=== PATIENT | female | born 1950 | race Caucasian/White ===

== ENCOUNTER 2023-07-09 13:55 | Inpatient (IN) ==
--- NOTE | 2023-07-09 16:59 | XRay Report ---
XR chest 1V not portable HISTORY: 73 years-old Female Chest pain, nonspecific COMPARISON: 12/13/2022 TECHNIQUE: PA view chest FINDINGS: Cardiomediastinal and hilar silhouettes are within normal limits. Subcentimeter calcified granuloma o f the right upper lobe. Mild right hemidiaphragmatic elevation. No pneumothorax, pleural effusion, ai rspace consolidation or overt pulmonary edema. Bones appear grossly intact. Cholecystectomy. IMPRESSION: No acute process. ACT 112: Negative or not required by law. The above report was generated using voice recognition software. It may contain grammatical, syntax o r spelling errors. Electronically signed by: Willie Oneal M.D. 07/09/2023 4:57 PM
[2023-07-09 17:15] LABS: Basophils % (auto) 1.1 %; Eosinophils % (auto) 2.1 %; Hematocrit (blood only) 44.5 % (37.0-47.0); Hemoglobin 14.8 g/dl (12.0-16.0); Immature Granulocytes # (auto) 0.06 K/uL (0.01-0.20); Immature Granulocytes % (auto) 0.6 %; Lymphocytes # (auto) 1.86 K/uL (1.20-3.40); Lymphocytes % (auto) 19.6 %; Mean Corpuscular Hgb Conc 33.3 g/dL (32.0-36.0); Mean Corpuscular Volume 90.3 fL (80.0-100.0); Mean Platelet Volume 11.2 fL (9.4-12.4); Monocytes # (auto) 0.57 K/uL (0.11-0.59); Neutrophils # (auto) 6.72 K/uL (1.40-6.50); Neutrophils % (auto) 70.6 %; Platelet Count 310 K/uL (130-400); RDW Coefficient of Variation 13.7 % (11.5-14.5); RDW Standard Deviation 45.4 fL (36.4-46.3); Red Blood Count 4.93 M/uL (4.20-5.40); White Blood Count 9.51 K/ul (4.8-10.8)
[2023-07-09 17:28] LABS: Partial Thromboplastin Ratio 0.9; Partial Thromboplastin Time 25 Seconds (21-31); Prothrombin Time 10.6 Seconds (9.0-12.0)
[2023-07-09 17:56] LABS: Potassium 3.9 mmol/L (3.5-5.1)
[2023-07-09 17:57] LABS: Albumin Globulin Ratio 1.3 (0.9-2); Albumin Level 4.2 gm/dl (3.4-5.0); BUN Creatinine Ratio 21.6 (10-20); Bilirubin,Total 0.5 mg/dl (0.2-1.0); Calcium 9.7 mg/dl (8.6-10.3); Creatinine Clr Calc Pharmacy 43.7 ml/min; Est GFR (African American) 74.5 ml/min; Est GFR (Non-African American) 64.3 ml/min; Globulin 3.3 gm/dl (2.5-4.0); Magnesium 1.9 mg/dl (1.7-2.4); Total Protein 7.5 gm/dl (6.0-8.3)
--- NOTE | 2023-07-09 17:58 | Emergency Department Note ---
Impression & Plan Chest pain, Palpitations, Elevated troponin ED Provider Note NAME: EDY DANIEL AGE: 73 SEX: F : 1950 ARRIVES VIA: Walk-In INFORMANT: Patient ED PROVIDER(S): Scott Fields DO CHIEF COMPLAINT: Chest pain HPI: Patient is a 73-year-old female who presents to the ER for shortness of breath and chest pain. Symptoms have been going on for the past 2 months with shortness of breath getting worse with any exertion. Over the past 2 days she has been getting chest tightness/burning associated with arm pain and shortness of breath. Yesterday lasted for an hour and today it lasted for couple hours. It has resolved now. She noticed that her heart rate was up today when this occurred in the 120s. Denies any belly pain nausea vomiting or diarrhea. No dysuria urgency or frequency. No other exacerbating or remitting factors. ADDITIONAL HISTORY OBTAINED: Per HPI Chronic Medical/Social Conditions Affecting Care: Per HPI PAST MEDICAL HISTORY:See Below PAST SURGICAL HISTORY:See Below FAMILY HISTORY:See Below SOCIAL HISTORY:See Below HOME MEDICATIONS:See Below ALLERGIES:See Below VITALS:See Below PHYSICAL EXAMINATION: GENERAL: Sitting up in bed, alert, well appearing, well nourished, no distress, non-toxic EYE EXAM: normal conjunctiva. PERRL and EOM's grossly intact. OROPHARYNX: mucous membranes are moist NECK: supple, no nuchal rigidity, no adenopathy, non-tender LUNGS: Clear to auscultation. Normal chest wall mechanics HEART: no murmurs, S1 normal and S2 normal ABDOMEN: abdomen soft, non-tender, normo-active bowel sounds, no masses, no rebound or guarding. BACK: Back is symmetrical on inspection and there is no deformity, no midline tenderness, no CVA tenderness. SKIN: no rashes and no bruising UPPER EXTREMITIES: upper extremities are grossly normal. LOWER EXTREMITIES: No pitting edema. NEURO EXAM: Normal sensorium, cranial nerves II-XII grossly intact, normal speech, no gross weakness of arms, no gross weakness of legs. MEDICAL DECISION MAKING: Patient is a 73-year-old female who presents the ER for above-stated complaint. IV was established medicals obtained. Labs show no significant leukocytosis or anemia. INR unremarkable. Dimer mildly elevated but age-adjusted is negative. BMP with LFTs bilirubin was unremarkable. Initial troponin was negative and repeat trended up to 16 and was positive. Lipase was normal. TSH unremarkable. Chest x-ray was clean. Patient was updated bedside. She was given aspirin. Discussed case with hospitalist this morning patient be admitted for further workup. Patient is currently pain-free. Held on heparin. Consults/Care Managements Discussions: Per [facility] Triage Nursing notes reviewed. Limited review of prior medical records performed Vital Signs: reviewed and remarkable for HTN adn tachy Differential diagnosis: Cardiac ischemia, aortic dissection, pulmonary embolism, pneumothorax, pneumonia, pericarditis, myocarditis, esophageal rupture, GERD, cholecystitis, pancreatitis, musculoskeletal, as well as other pathologies. ER treatment provided: See below Diagnostics interpreted by me include EKG and cardiac monitoring as listed below: -Cardiac Monitoring: An order was placed for continuous cardiac monitoring. The monitor shows a rate of 95 with sinus rhythm. -ECG: Sinus rhythm rate 88 Normal axis No PVCs T wave inversions in septal leads QTc 430 -Laboratory studies:Interpreted by me as stated above in MDM and shown below. Imaging studies: Xrays: As interpreted by me: Portable upright 1 view of the chest shows no focal infiltrate CTs show: none Procedures:none Critical Care: None Past Med/Surg History Medical History Colon perforation in 2012 -- treated with colon resection History of COVID-19 May 11, 2021. 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 History of left heart catheterization 2017 History of pericarditis per patient "post covid" - followed with [facility] [place] [facility] Hx of basal cell carcinoma Immune hypersensitivity reaction hives ocas Papular urticaria PSVT (paroxysmal supraventricular tachycardia) hx and had ablation Rash and nonspecific skin eruption not sure of what but get ocas hives Surgical History H/O hernia repair incisional hernia repair SEPTEMBER 2015 AND incisional hernia dehiscence surgery in JANUARY 2016 History of cardiac radiofrequency ablation treated for PSVT History of cholecystectomy 2020 History of colon surgery 2012 History of colonoscopy History of colostomy History of colostomy reversal History of hip replacement right and left Family History Other No family history of adverse response to anesthesia Denies family history of Ovarian cancer Prostate cancer Diabetes Breast cancer Colorectal cancer Hypertension Social History Smoking Status: Never smoker Second Hand Exposure: No; Do You Dip or Chew Tobacco: No; Hx Alcohol Use: Yes Alcohol type: wine Alcohol Intake Frequency: Monthly or Less Hx Substance Use: No Preferred Language: Faroese Communication Ability: Effective Visual Impairment: Limited Hearing Ability: Normal Protector Plate Attacher Required: No Beliefs That Will Affect Care: None marital status: Current Living Situation: Alone current occupational status: retired How many Children do You have: 1 How many Children do You have Comment: 1 son. Feels Safe at Home: Yes Childhood Exposure to Second-Hand Smoke: No Diet: regular caffeine: No during the past year weight has: remained stable Dental Care, Regularly: Yes Physical Activity Frequency: 1-2 Times per Week Physical Activity Frequency Comment: walking Seatbelt Use: always Sunscreen Use: Yes Do you think of yourself as: straight/heterosexual Gender Identity: Female Assistive Devices: Glasses Allergies Allergies Allergy/AdvReac Type Severity Reaction Status Date / Time diltiazem Allergy Severe HIVES Verified 07/09/23 18:26 flecainide Allergy Severe facial Verified 07/09/23 18:26 swelling/lip & mouth swelling levofloxacin Allergy Severe SWELLING Verified 07/09/23 18:26 OF LIPS AND MOUTH azithromycin Allergy Intermediate GI bleed Verified 07/09/23 18:26 metoprolol Allergy Intermediate MUSCLE Verified 07/09/23 18:26 PAIN Penicillins Allergy Intermediate HIVES Verified 07/09/23 18:26 adhesive AdvReac Severe skin Verified 07/09/23 18:26 blisters nickel AdvReac Severe skin Verified 07/09/23 18:26 irritation, blisters Home Meds Home Medications Medication Instructions Recorded Confirmed aspirin 81 mg capsule 81 mg PO DAILY PRN when needed 10/16/21 07/09/23 coenzyme Q10 300 mg capsule 300 mg PO QAM 10/16/21 07/09/23 multivitamin 1 tab PO QAM 10/16/21 07/09/23 cholecalciferol (vitamin D3) 125 125 mcg PO QAM 10/07/22 07/09/23 mcg (5,000 unit) capsule kirby extract 120 mg capsule 120 mg PO DAILY 07/09/23 07/09/23 cyanocobalamin (vitamin B-12) 1,000 mcg PO DAILY 07/09/23 07/09/23 1,000 mcg tablet (Vitamin B-12) vitamin A-vitamin C-vit E-min 1 tab PO DAILY 07/09/23 07/09/23 tablet Results & Data (ED) Vital Signs Vital Signs - 24 hr 07/09/23 14:02 07/09/23 18:21 07/09/23 19:30 Temperature 37.0 C Temperature Source Temporal Artery Scan Pulse Rate 100 H 65 Pulse Rate [Apical] Pulse Rhythm Regular Pulse Strength Normal Respiratory Rate 18 Respiratory Effort / Characteristics Non-Labored Respiratory Depth Normal Respiratory Pattern Regular Blood Pressure 142/83 H Blood Pressure [Right Arm] Blood Pressure Mean 102 Blood Pressure Mean [Right Arm] Blood Pressure Position Sitting Pulse Oximetry 98 95 Oxygen Delivery Method Room Air Room Air Oxygen Flow Rate 0 Sepsis Recent Fever Within 48 Hours No Sepsis New/Unexplained Change in Mental Status No Sepsis Action Taken by Nursing No Action Required Oxygen Flow Rate - Titration 0 Pulse Oximetry Post Tiitration 95 07/09/23 19:34 07/09/23 19:35 07/09/23 21:00 Temperature Temperature Source Pulse Rate Pulse Rate [Apical] 63 68 Pulse Rhythm Pulse Strength Respiratory Rate 17 18 Respiratory Effort / Characteristics Non-Labored Respiratory Depth Normal Respiratory Pattern Regular Blood Pressure Blood Pressure [Right Arm] 134/83 158/86 H Blood Pressure Mean Blood Pressure Mean [Right Arm] 100 110 Blood Pressure Position Pulse Oximetry 96 95 98 Oxygen Delivery Method Room Air Room Air Room Air Oxygen Flow Rate Sepsis Recent Fever Within 48 Hours Sepsis New/Unexplained Change in Mental Status Sepsis Action Taken by Nursing Oxygen Flow Rate - Titration Pulse Oximetry Post Tiitration Laboratory Data 07/09/23 14:20 07/09/23 14:20 Lab Results 07/09/23 07/09/23 Range/Units 14:20 20:59 WBC 9.51 (4.8-10.8) K/ul RBC 4.93 (4.20-5.40) M/uL Hgb 14.8 (12.0-16.0) g/dl Hct 44.5 (37.0-47.0) % MCV 90.3 (80.0-100.0) fL MCH 30.0 (25.0-34.0) pg MCHC 33.3 (32.0-36.0) g/dL RDW Std Deviation 45.4 (36.4-46.3) fL RDW Coeff of [place] 13.7 (11.5-14.5) % Plt Count 310 (130-400) K/uL MPV 11.2 (9.4-12.4) fL Immature Gran % (Auto) 0.6 % Neut % (Auto) 70.6 % Lymph % (Auto) 19.6 % [place] % (Auto) 6.0 % Eos % (Auto) 2.1 % Baso % (Auto) 1.1 % Neut # (Auto) 6.72 H (1.40-6.50) K/uL Lymph # (Auto) 1.86 (1.20-3.40) K/uL [place] # (Auto) 0.57 (0.11-0.59) K/uL Eos # (Auto) 0.20 (0.00-0.50) K/uL Baso # (Auto) 0.10 (0.00-0.20) K/uL Immature Gran # (Auto) 0.06 (0.01-0.20) K/uL PT 10.6 (9.0-12.0) Seconds INR 1.0 (0.9-1.1) APTT 25 (21-31) Seconds PTT Ratio 0.9 D-Dimer 640 H* (0-500) ug/L FEU Sodium 141 (136-145) mmol/L Potassium 3.9 (3.5-5.1) mmol/L Chloride 107 (98-107) mmol/L Carbon Dioxide 26 (21-32) mmol/L Anion Gap 8 (3-11) BUN 19 (6-23) mg/dl Creatinine 0.88 (0.6-1.2) mg/dl Est Cr Clr Drug Dosing 43.7 ml/min Est GFR ( Amer) 74.5 ml/min Est GFR (Non-Af Amer) 64.3 ml/min BUN/Creatinine Ratio 21.6 H (10-20) Glucose 114 H (70-99(Fasting)) mg/dl Calcium 9.7 (8.6-10.3) mg/dl Magnesium 1.9 (1.7-2.4) mg/dl Total Bilirubin 0.5 (0.2-1.0) mg/dl AST 27 (13-39) U/L ALT 22 (7-52) U/L Alkaline Phosphatase 75 (34-104) U/L Troponin I High Sens 12.8 16.3 H (0-14) pg/ml Total Protein 7.5 (6.0-8.3) gm/dl Albumin 4.2 (3.4-5.0) gm/dl Globulin 3.3 (2.5-4.0) gm/dl Albumin/Globulin Ratio 1.3 (0.9-2) Lipase 22 (11-82) U/L TSH 1.566 (0.300-4.500) uIu/ml Administered Medications Discontinued Medications Aspirin (Aspirin Chew 324 Mg) 324 mg PO NOW STA Stop: 07/09/23 17:59 Last Admin: 07/09/23 18:24 Dose: 324 mg Documented By: DANNIELLE Sodium Chloride (Nss) 1,000 mls @ 999 mls/hr IV .Q1H1M ONE Stop: 07/09/23 18:58 Last Infusion: 07/09/23 21:44 Dose: Infused Documented By: SKChristoph Admin: 07/09/23 18:23 Dose: 999 mls/hr Documented By: DANNIELLE Imaging Data Radiologist's Impression: Chest X-Ray 07/09/23 16:31 XR chest 1V not portable HISTORY: 73 years-old Female Chest pain, nonspecific COMPARISON: 12/13/2022 TECHNIQUE: PA view chest FINDINGS: Cardiomediastinal and hilar silhouettes are within normal limits. Subcentimeter calcified granuloma of the right upper lobe. Mild right hemidiaphragmatic elevation. No pneumothorax, pleural effusion, airspace consolidation or overt pulmonary edema. Bones appear grossly intact. Cholecystectomy. IMPRESSION: No acute process. ACT 112: Negative or not required by law. The above report was generated using voice recognition software. It may contain grammatical, syntax or spelling errors. Electronically signed by: Willie Oneal M.D. 07/09/2023 4:57 PM Discharge Plan Visit Data Chief Complaint: Cardiac Assessment Stated Complaint: ?AFIB,DOC REF,129 HR,CHEST PAIN,CARDIAC HX ED Provider: Scott Fields Discharge Problem: Chest pain, Palpitations, Elevated troponin Forms Stand Alone Forms: My [facility] Prescriptions Prescriptions: No Action multivitamin Tablet 1 tab PO QAM coenzyme Q10 300 mg capsule 300 mg PO QAM aspirin 81 mg capsule 81 mg PO DAILY PRN (Reason: when needed) cholecalciferol (vitamin D3) 125 mcg (5,000 unit) capsule 125 mcg PO QAM cyanocobalamin (vitamin B-12) [Vitamin B-12] 1,000 mcg Tablet 1,000 mcg PO DAILY Ocuvite Tablet 1 tab PO DAILY ashwagandha extract 120 mg Capsule 120 mg PO DAILY Referrals Referrals: Barbara Valladares [Primary Care Provider] - Discharge Problem: Chest pain Qualifiers: Chest pain type: unspecified Qualified Code(s): R07.9 - Chest pain, unspecified
[2023-07-09 17:59] LABS: Troponin I High Sensitivity 12.8 pg/ml (0-14)
[2023-07-09 18:08] LABS: Thyroid Stimulating Hormone 1.566 uIu/ml (0.300-4.500)
[2023-07-09] MEDS: SODIUM CHLORIDE 0.9% 1,000 ML IV ONE (18:23)
[2023-07-09] MEDS: ASPIRIN CHEW 324 MG PO STA (18:24)
[2023-07-09 21:55] LABS: D Dimer 640 ug/L FEU (0-500)
--- NOTE | 2023-07-09 22:18 | History & Physical Report ---
Date of Service July 09, 2023 Assessment & Plan (1) Chest pain: Plan: 73-year-old female presenting with increased frequency of chest discomfort and palpitations. Patient reports her symptoms have been ongoing since she had bronchitis 2 weeks ago. She does have history of SVT status post ablation as well as remote history of pericarditis following a URI. Increasing troponin. Initial value 12.8 which increased to 16.3. EKG with no acute ischemic changes. Patient with no underlying history of CAD or known risk factors. Patient with mild elevation of D-dimer = 640. No prior VTE. No lower extremity swelling or pain. She does report that she was fairly immobile 2 weeks ago during her illness. Admit to medical telemetry, monitor for arrhythmia Check 2D echo, ?effusion/pericarditis - no clinical suggestion of such Trend troponin to peak Check CTA chest to rule out PE Continue aspirin 81 mg p.o. daily. Of note, patient has this ordered as needed. Will give daily for now Patient may benefit from outpatient cardiac monitoring for continued assessment for arrhythmia (2) Palpitations: Plan: As above. Patient with history of SVT status post ablation 5 years ago. She reports episodes of palpitations, elevated heart rate to 120. Upon review of telemetry in ER, patient in sinus rhythm with occasional PVCs. Electrolytes are within normal limits. Trending troponin as above Telemetry monitoring Electrolyte repletion as needed Patient may benefit from ongoing cardiac monitoring as an outpatient F/E/N -saline lock. Monitor electrolytes. Regular diet as tolerated ProphylaxisLovenox Codefull Dispositionadmit to medical telemetry (3) Elevated troponin: History of Present Illness Chief Complaint: Chest discomfort, palpitations Primary Care Provider: Barbara Barraganremberto Wiggins is a 73yo female with history of SVT s/p ablation in 2014 and prior pericarditis presenting with several weeks of progressive ARIZA as well as chest discomfort. Patient had bronchitis recently - she was treated with 7 days of Doxycycline as well as 5 days of steroids. She was NEGATIVE for Influenza/Covid and Strep at the time of her illness. She reports some improvement but still has dry cough and hoarseness. She has noted a significant decrease in her exercise tolerance over the last several weeks. She is typically very active - goes to Yoga and exercise class 3x weekly. She has had multiple episodes of dizziness, near syncope, sweating and cold sweats. She has also had several episodes of chest pressure and racing heart. This afternoon around 13:00 she developed an episode of chest pressure and racing heart. Symptoms lasted approximately 3 hours. She describes the chest pressure as anterior, nonradiating, nonpositional and nonpleuritic, states that it felt like "an internal burning sensation". She did feel short of breath during the episode. She checked her heart rate during this time it was elevated at 120. She states that her heart monitor did not overheard any irregular beats, rhythm. Her blood pressure was within normal range. She called her PCP and was instructed to come to the ER. Patient presently feels well. She does report several episodes of "heart pain" occurring while waiting in the ER although they have been short in duration and self-limiting. Otherwise, patient denies fever, chills, nausea, vomiting, abdominal pain. She denies leg pain or edema. No orthopnea. In the ER, patient afebrile, hemodynamically stable. No acute distress. personnel monitor reviewed. Patient has been in normal sinus rhythm with infrequent PVCs. No arrhythmia noted Allergies Allergy/AdvReac Type Severity Reaction Status Date / Time diltiazem Allergy Severe HIVES Verified 07/09/23 18:26 flecainide Allergy Severe facial Verified 07/09/23 18:26 swelling/lip & mouth swelling levofloxacin Allergy Severe SWELLING Verified 07/09/23 18:26 OF LIPS AND MOUTH azithromycin Allergy Intermediate GI bleed Verified 07/09/23 18:26 metoprolol Allergy Intermediate MUSCLE Verified 07/09/23 18:26 PAIN Penicillins Allergy Intermediate HIVES Verified 07/09/23 18:26 adhesive AdvReac Severe skin Verified 07/09/23 18:26 blisters nickel AdvReac Severe skin Verified 07/09/23 18:26 irritation, blisters Home Medications Medication Instructions Recorded Confirmed Type aspirin 81 mg capsule 81 mg PO DAILY PRN when needed 10/16/21 07/09/23 History coenzyme Q10 300 mg capsule 300 mg PO QAM 10/16/21 07/09/23 History multivitamin 1 tab PO QAM 10/16/21 07/09/23 History cholecalciferol (vitamin D3) 125 125 mcg PO QAM 10/07/22 07/09/23 History mcg (5,000 unit) capsule ashwagandha extract 120 mg capsule 120 mg PO DAILY 07/09/23 07/09/23 History cyanocobalamin (vitamin B-12) 1,000 mcg PO DAILY 07/09/23 07/09/23 History 1,000 mcg tablet (Vitamin B-12) vitamin A-vitamin C-vit E-min 1 tab PO DAILY 07/09/23 07/09/23 History tablet Past Med/Surg History Medical History 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 Hx of basal cell carcinoma History of left heart catheterization 2017 PSVT (paroxysmal supraventricular tachycardia) hx and had ablation Surgical History History of colonoscopy History of colostomy reversal History of colostomy History of cardiac radiofrequency ablation treated for PSVT History of cholecystectomy 2020 History of hip replacement right and left H/O hernia repair incisional hernia repair SEPTEMBER 2015 AND incisional hernia dehiscence surgery in JANUARY 2016 History of colon surgery 2012 Family History Other No family history of adverse response to anesthesia Denies family history of Ovarian cancer Prostate cancer Diabetes Breast cancer Colorectal cancer Hypertension Social History Smoking Status: Never smoker Second Hand Exposure: No; Do You Dip or Chew Tobacco: No; Hx Alcohol Use: Yes Alcohol type: wine Alcohol Intake Frequency: Monthly or Less Hx Substance Use: No Preferred Language: Setswana Communication Ability: Effective Visual Impairment: Limited Hearing Ability: Normal Cardroom Worker Required: No Beliefs That Will Affect Care: None marital status: Current Living Situation: Alone current occupational status: retired How many Children do You have: 1 How many Children do You have Comment: 1 son. Feels Safe at Home: Yes Childhood Exposure to Second-Hand Smoke: No Diet: regular caffeine: No during the past year weight has: remained stable Dental Care, Regularly: Yes Physical Activity Frequency: 1-2 Times per Week Physical Activity Frequency Comment: walking Seatbelt Use: always Sunscreen Use: Yes Do you think of yourself as: straight/heterosexual Gender Identity: Female Assistive Devices: Glasses Review of Systems Review of Systems: All systems reviewed & are unremarkable except as noted in HPI & below Physical Exam Physical Exam: General: patient resting comfortably, NAD, non-toxic in appearance, AA&O x 4 Skin: warm, dry, intact, no rashes or lesions HEENT: NC/AT, PERRL, EOMI, anicteric sclera, conjunctiva without injection, external ear normal to inspection and nontender, nares patent, moist mucus membranes, dentition intact, no oropharyngeal lesions, neck supple, trachea midline, no LAD, no thyromegaly, no JVD Heart: +S1/S2, regular, no m/r/g Lungs: equal air entry bilaterally, no rales/rhonchi/wheezes Abd: +BS, soft, NT/ND, no masses/organomegaly/ascites Ext: warm, 2+ pulses in UE/LE bilaterally, no clubbing/cyanosis or edema Neuro: nonfocal, patient AA&O x 4, speech intact, no facial droop, moving all extremities on command with equal strength 5/5 Results & Data Results & Data Vital Signs (Past 12 Hours) Vital Signs Temp Pulse Pulse Resp BP BP Pulse Ox 07/09/23 22:02 78 07/09/23 21:00 68 18 158/86 H 98 07/09/23 19:35 95 07/09/23 19:34 63 17 134/83 96 07/09/23 19:30 95 07/09/23 18:21 65 07/09/23 14:02 37.0 C 100 H 18 142/83 H 98 O2 Del Method O2 Flow Rate 07/09/23 22:02 07/09/23 21:00 Room Air 07/09/23 19:35 Room Air 07/09/23 19:34 Room Air 07/09/23 19:30 Room Air 0 07/09/23 18:21 07/09/23 14:02 Room Air Laboratory Results Laboratory Results WBC 9.51 K/ul (4.8-10.8) 07/09/23 14:20 RBC 4.93 M/uL (4.20-5.40) 07/09/23 14:20 Hgb 14.8 g/dl (12.0-16.0) 07/09/23 14:20 Hct 44.5 % (37.0-47.0) 07/09/23 14:20 MCV 90.3 fL (80.0-100.0) 07/09/23 14:20 MCH 30.0 pg (25.0-34.0) 07/09/23 14:20 MCHC 33.3 g/dL (32.0-36.0) 07/09/23 14:20 RDW Std Deviation 45.4 fL (36.4-46.3) 07/09/23 14:20 RDW Coeff of [place] 13.7 % (11.5-14.5) 07/09/23 14:20 Plt Count 310 K/uL (130-400) 07/09/23 14:20 MPV 11.2 fL (9.4-12.4) 07/09/23 14:20 Immature Gran % (Auto) 0.6 % 07/09/23 14:20 Neut % (Auto) 70.6 % 07/09/23 14:20 Lymph % (Auto) 19.6 % 07/09/23 14:20 [place] % (Auto) 6.0 % 07/09/23 14:20 Eos % (Auto) 2.1 % 07/09/23 14:20 Baso % (Auto) 1.1 % 07/09/23 14:20 Neut # (Auto) 6.72 K/uL (1.40-6.50) H 07/09/23 14:20 Lymph # (Auto) 1.86 K/uL (1.20-3.40) 07/09/23 14:20 [place] # (Auto) 0.57 K/uL (0.11-0.59) 07/09/23 14:20 Eos # (Auto) 0.20 K/uL (0.00-0.50) 07/09/23 14:20 Baso # (Auto) 0.10 K/uL (0.00-0.20) 07/09/23 14:20 Immature Gran # (Auto) 0.06 K/uL (0.01-0.20) 07/09/23 14:20 PT 10.6 Seconds (9.0-12.0) 07/09/23 14:20 INR 1.0 (0.9-1.1) 07/09/23 14:20 APTT 25 Seconds (21-31) 07/09/23 14:20 PTT Ratio 0.9 07/09/23 14:20 D-Dimer 640 ug/L FEU (0-500) H* 07/09/23 20:59 Sodium 141 mmol/L (136-145) 07/09/23 14:20 Potassium 3.9 mmol/L (3.5-5.1) 07/09/23 14:20 Chloride 107 mmol/L (98-107) 07/09/23 14:20 Carbon Dioxide 26 mmol/L (21-32) 07/09/23 14:20 Anion Gap 8 (3-11) 07/09/23 14:20 BUN 19 mg/dl (6-23) 07/09/23 14:20 Creatinine 0.88 mg/dl (0.6-1.2) 07/09/23 14:20 Est Cr Clr Drug Dosing 43.7 ml/min 07/09/23 14:20 Est GFR ( Amer) 74.5 ml/min 07/09/23 14:20 Est GFR (Non-Af Amer) 64.3 ml/min 07/09/23 14:20 BUN/Creatinine Ratio 21.6 (10-20) H 07/09/23 14:20 Glucose 114 mg/dl (70-99(Fasting)) H 07/09/23 14:20 Calcium 9.7 mg/dl (8.6-10.3) 07/09/23 14:20 Magnesium 1.9 mg/dl (1.7-2.4) 07/09/23 14:20 Total Bilirubin 0.5 mg/dl (0.2-1.0) 07/09/23 14:20 AST 27 U/L (13-39) 07/09/23 14:20 ALT 22 U/L (7-52) 07/09/23 14:20 Alkaline Phosphatase 75 U/L (34-104) 07/09/23 14:20 Troponin I High Sens 16.3 pg/ml (0-14) H 07/09/23 20:59 Total Protein 7.5 gm/dl (6.0-8.3) 07/09/23 14:20 Albumin 4.2 gm/dl (3.4-5.0) 07/09/23 14:20 Globulin 3.3 gm/dl (2.5-4.0) 07/09/23 14:20 Albumin/Globulin Ratio 1.3 (0.9-2) 07/09/23 14:20 Lipase 22 U/L (11-82) 07/09/23 14:20 TSH 1.566 uIu/ml (0.300-4.500) 07/09/23 14:20 Impressions Chest X-Ray 07/09/23 16:31 XR chest 1V not portable HISTORY: 73 years-old Female Chest pain, nonspecific COMPARISON: 12/13/2022 TECHNIQUE: PA view chest FINDINGS: Cardiomediastinal and hilar silhouettes are within normal limits. Subcentimeter calcified granuloma of the right upper lobe. Mild right hemidiaphragmatic elevation. No pneumothorax, pleural effusion, airspace consolidation or overt pulmonary edema. Bones appear grossly intact. Cholecystectomy. IMPRESSION: No acute process. ACT 112: Negative or not required by law. The above report was generated using voice recognition software. It may contain grammatical, syntax or spelling errors. Electronically signed by: Willie Oneal M.D. 07/09/2023 4:57 PM ECG Additional Comments: EKG per my interpretation reveals NSR at 88bpm, normal axis, AY=051, QRS=80, QTc =430, non acute ischemic changes PG Care Time/CCT Total # of Minutes Spent Total Time Spent with Patient: Total time spent is greater than 50% in coordination of care (as documented) at patient's floor/unit and/or counseling patient: Coding Level of Care Code 57293 INT INP/OBS CARE 2/55MIN Diagnoses Chest pain R07.9 Chest pain type: unspecified Palpitations R00.2 Elevated troponin R79.89 (1) Chest pain Chest pain type: unspecified Qualified Code(s): R07.9 - Chest pain, unspecified
[2023-07-10] MEDS ORDERED: ACETAMINOPHEN 325 MG TAB PO PRN (00:21)
[2023-07-10] MEDS ORDERED: NON-FORMULARY MEDICATION (Aspirin 81 mg capsule) PO PRN (00:21)
[2023-07-10] MEDS: OPTIRAY 320 125ml IV ONE (00:53)
--- NOTE | 2023-07-10 02:54 | CT Scan Report ---
Exam(s): CTA CHEST IV Amt: 116 cc opti 320 EXAM: CT Angiography Chest With Intravenous Contrast CLINICAL HISTORY: PE. TECHNIQUE: Axial computed tomographic angiography images of the chest with intravenous contrast. CTDI is 9.56 mGy and DLP is 306.47 mGy-cm. Automated exposure control was utilized for the study. A dose lowering technique was utilized adhering to the principles of ALARA. MIP reconstructed images were created and reviewed. COMPARISON: Chest radiograph 07/09/2023 FINDINGS: Pulmonary arteries: Unremarkable. No pulmonary embolus. Aorta: No acute findings. No thoracic aortic aneurysm. Lungs: Interseptal thickening is noted. No consolidation. No mass. Pleural space: Unremarkable. No significant effusion. No pneumothorax. Heart: Unremarkable. No cardiomegaly. No significant pericardial effusion. No evidence of RV dysfunction. Bones/joints: There are degenerative changes of the spine. No acute fracture. No dislocation. Soft tissues: Unremarkable. Lymph nodes: Unremarkable. No enlarged lymph nodes. IMPRESSION: 1. No pulmonary embolus. 2. Interseptal thickening is concerning for pulmonary edema. Electronically signed by: Fatrun De La Cruz MD 07/10/23 02:53 AM
[2023-07-10] MEDS ORDERED: ASPIRIN 81 MG ECTAB PO SCH (09:00)
[2023-07-10] MEDS ORDERED: ENOXAPARIN INJ 40 MG/0.4 ML SYR SQ SCH (09:00)
--- OUTSIDE RECORDS SUMMARY | 2023-07-10 13:56 | External Medical Summary | Summary of Care ---
Author Name Unknown Organization [facility] Address [address] [place] [address] Phone [phone] Care Team Providers Care Headline Writer Name Role Phone Barbara Valladares Primary Care Provider [phone] Reason for Visit * Reason Onset Date Comments Sore Throat Vomiting Sore Throat 06/20/2023 Encounter Details Date Type Department Care Team (Latest Contact Info) Description 06/20/2023 9:20 AM EST Convenient Care Visit [facility] [address] [place] [address] Shaneka Avila PA-C [address] [place] [address] Acute pharyngitis, unspecified etiology* Allergies Active Allergy Reactions Criticality Noted Date Comments Azithromycin Bleeding High 10/12/2021 Diltiazem Hives 10/12/2021 Flecainide High 05/24/2014 Other reaction(s): angioedema, facial swelling/lip & mouth swelling, Intolerance Affecting eyes Double vision visual disturbances Levofloxacin Hives 10/12/2021 Metoprolol High 05/24/2014 Other reaction(s): FATIGUE, muscle pain, MUSCLE PAIN , Myalgia Leg pain Leg soreness Morphine Hives Medium 05/24/2014 PT IS UNSURE IF MORPHINE WAS THE OFFICIAL CAUSE OR NOT Nickel High 10/25/2016 Other reaction(s): skin irritation, blisters, Unknown blisters Penicillin G Hives 10/12/2021 documented as of this encounter (statuses as of 06/20/2023) Medications Medication Sig Dispensed Refills Start Date End Date Status Aspirin 81 MG Oral Tablet Delayed Release 1 Tablet. 0 10/03/2021 Ac tive Multi-Vitamin Oral Tablet Take 1 Tablet by mouth in the morning. 0 Active Cholecalciferol 125 MCG (5000 UT) Oral Capsule DAILY 0 09/04/2021 Active Ciclopirox Olamine 0.77 % External Cream Start: 04/02/22 14:00:00 EST, 1 appl, topical, bid, Disp# 90 g, Refills: 2, apply to affected toenails, Pharmacy: [facility]/pharmacy #[id number] 0 04/02/2022 Active Coenzyme Q10 300 MG Oral Capsule 300 mg . 0 10/16/2021 Active Ashwagandha 500 MG Oral Capsule Take 1,000 mg by mouth . 0 Active Triamcinolone Acetonide 0.1 % External Cream (Aristocort)Indication s:Rash and nonspecific skin eruption Apply to rash twice daily as needed 45 g 1 11/21/2022 Active documented as of this encounter (statuses as of 06/20/2023) Active Problems No known active problems documented as of this encounter (statuses as of 06/20/2023) Immunizations Name Administration Dates Next Due TDAP (age 10 and older)(Boostrix) 10/12/2021 documented as of this encounter Social History Tobacco Use Types Packs/Day Years Used Date Smoking Tobacco: Never Smokeless Tobacco: Never Tobacco Cessation:Counseling Given: Not Answered Alcohol Use Standard Drinks/Week Comments Not Asked 0 (1 standard drink = 0.6 oz pur e alcohol) minimal Sex and Gender Information Value Date Recorded Sex Assigned at Not on file Gender Identity Not on file Sexual Orientation Not on file Job Start Date Occupation Industry Not on file Not on file Not on file documented as of this encounter Last Filed Vital Signs Vital Sign Reading Time Taken Comments Blood Pressure 100/70 06/20/2023 9:33 AM EST Pulse 90 06/20/2023 9:33 AM EST Temperature 37.6 C (99.7 F) 06/20/2023 9:33 AM ES T Respiratory Rate 16 06/20/2023 9:33 AM EST Oxygen Saturation 94% 06/20/2023 9:33 AM EST Inhaled Oxygen Concentration - - Weight 60.8 kg (134 lb) 06/20/2023 9:33 AM EST Height - - Body Mass Index 23.74 09/10/2022 2:33 PM EDT documented in this encounter Progress Notes * Shaneka Avila PA-C - 06/20/2023 9:36 AM EST Millicent Wiggins is a 73 year old female who presents with sore throat symptoms. Patient was accompanied by Self. Nursing Notes: Maci Angel LPN 06/20/23 0938 Signed 73 yo female presents with sore throat/emesis this am. No OTC HPI: Severity of Symptoms: Moderate Modifying Factors (what was done since onset of Symptoms): none Timing (How often does it occur): started last night, constant Quality (Feels Like): irritated, sore throat Other associated Signs and Symptoms: nausea with vomiting of breakfast food x 1, fatigue Sore throat started late last night. [place] like she might pass out. Made herself eggs this morning but could not keep it down. No more emesis since that episode. Had some water. States she has struggled with various symptoms she attributes to long COVID, including GI sx, rashes. Has seen GI specialist, marine animal trainer with extensive evaluation in the past several months. Pt concerned about strep infection. ROS: Constitutional symptoms: no fever, no weight loss, no weakness, and no recent illness Upper respiratory symptoms: - chest tightness, - cough , - facial or sinus pain, and - upper tooth pain Pulmonary ROS: No cough, sputum, or hemoptysis, No wheezing, No shortness of breath, and No recent change in breathing Cardiovascular ROS: No chest pain, No shortness of breath, No dyspnea on exertion, No orthopnea, No paroxysmal nocturnal dyspnea, No edema, No palpitations, and No syncope Gastrointestional ROS: No abdominal pain, No change in bowel habits, No significant heartburn, No significant change in appetite, No hematemesis, No blood in stools or black tarry stools, No abdominal bloating or early satiety, and No dysphagia Skin/Integumentary ROS: No edema, No rash, and No itching Symptom duration of 1 days. Recent illnesses in household: No HISTORY: Past Medical History: Diagnosis Date COVID-19 long hauler Primary generalized (osteo)arthritis Past Surgical History: Procedure Laterality Date EGD, W/ENDOSCOPIC US 04/16/2022 mild dilation in CBD measured 8mm due-post cholecystectomy, evid of cholecystectyomy, otherwise normal / no specimens collected / ESOPHAGOGASTRODUODENOSCOPY (EGD), FLEXIBLE, TRANSORAL, ENDOSCOPIC ULTRASOUND performed by Naldo Rose MD at ENDOSCOPY [facility] REMOVE CATARACT, INSERT LENS PROSTH Left 08/27/2022 Left EXTRACAPSULAR CATARACT REMOVAL WITH INTRAOCULAR LENS performed by Joshua Sandoval MD at OR [facility] REMOVE CATARACT, INSERT LENS PROSTH Right 09/10/2022 Right EXTRACAPSULAR CATARACT REMOVAL WITH INTRAOCULAR LENS performed by Joshua Sandoval MD at OR [facility] SHOULDER ARTHROSCOPY SURGERY Right TOTAL HIP REPLACEMENT & PROSTHESIS Bilateral Social History Tobacco Use Smoking status: Never Smokeless tobacco: Never Substance Use Topics Alcohol use: Not on file Comment: minimal Vaping/E-Cigarette Use Vaping/E-Cigarette Use Never User Vaping/E-Cigarette Substances Vaping/E-Cigarette Devices Current Outpatient Medications Medication Sig Dispense Refill Aspirin 81 MG Oral Tablet Delayed Release 1 Tablet. Multi-Vitamin Oral Tablet Take 1 Tablet by mouth in the morning. Cholecalciferol 125 MCG (5000 UT) Oral Capsule DAILY Ciclopirox Olamine 0.77 % External Cream Start: 04/02/22 14:00:00 EST, 1 appl, topical, bid, Disp# 90 g, Refills: 2, apply to affected toenails, Pharmacy: [facility]/pharmacy #[id number] Coenzyme Q10 300 MG Oral Capsule 300 mg . Ashwagandha 500 MG Oral Capsule Take 1,000 mg by mouth . Triamcinolone Acetonide 0.1 % External Cream (Aristocort) Apply to rash twice daily as needed 45 g 1 No current facility-administered medications for this visit. Review of patient's allergies indicates: Allergen Reactions Azithromycin Bleeding Flecainide Other reaction(s): angioedema, facial swelling/lip & mouth swelling, Intolerance Affecting eyes Double vision visual disturbances Metoprolol Other reaction(s): FATIGUE, muscle pain, MUSCLE PAIN , Myalgia Leg pain Leg soreness Nickel Other reaction(s): skin irritation, blisters, Unknown blisters Morphine Hives PT IS UNSURE IF MORPHINE WAS THE OFFICIAL CAUSE OR NOT Diltiazem Hives Levofloxacin Hives Penicillin G Hives No family history on file. OBJECTIVE: BP 100/70 | Pulse 90 | Temp 37.6 C (99.7 F) (Tympanic) | Resp 16 | Wt 60.8 kg (134 lb) | SpO2 94% | BMI 23.74 kg/m | BSA 1.64 m Wt Readings from Last 1 Encounters: 06/20/23 60.8 kg (134 lb) General appearance: awake, alert, no apparent distress HEENT: perrl and eomi tms - clear, normal light reflex, no erythema + red and irritated pharynx No sinus tenderness or facial pain to percussion No turbinate engorgement or discharge Neck: normal, supple, no adenopathy Respiratory: clear to auscultation, no rhonchi, no wheezes, and no crackles Heart: regular rate, regular rhythm, no murmurs , no rubs, and no gallops Skin: skin color, texture, turgor are normal, no rashes or significant lesions Abdomen: abdomen soft, non-tender, normal bowel sounds, and no masses or organomegaly There are no Patient Instructions on file for this visit. Assessment: Acute pharyngitis, unspecified etiology (Primary) - STREP A SCREEN, POINT OF CARE (ENTER/EDIT) - GROUP A STREP PCR; Future; Expected date: 06/20/2023 - GROUP A STREP PCR - INFLUENZA A/B RSV SARS-COV2,PCR; Future; Expected date: 06/20/2023 Pt advised for rest, hydration. Follow up if new/worsening sx. Follow Up: Return if symptoms worsen or fail to improve. Patient goals for plan of care were discussed Shaneka Avila PA-C [address] [address] documented in this encounter Nursing Notes * Maci Angel LPN - 06/20/2023 9:33 AM EST 73 yo female presents with sore throat/emesis this am. No OTC documented in this encounter Plan of Treatment Upcoming Encounters Date Type Department Care Team (Late st Contact Info) Description 07/04/2023 4:15 PM EST Imaging Radiology [facility] [facility] [address] [facility] [place] [address] 07/22/2023 3:00 PM EDT Office Visit Orthopaedics [facility] [address] [facility] [place] [address] Jorge Garcia, DO [address] [place] [address] Pending Results Name Type Priority Associated Diagnoses Date /Time GROUP A STREP PCR Lab Routine Acute pharyngitis, unspecified etiology 06/20/2023 9:56 AM EST Scheduled Orders Name Type Priority Associated Diagnoses Orde r Schedule STREP A SCREEN, POINT OF CARE (ENTER/EDIT) Point of Care Testing Routine Acute pharyngitis, unspecified etiology Ordered: 06/20/2023 GROUP A STREP PCR Lab Routine Acute pharyngitis, unspecified etiology Expected: 06/20/2023, Expires: 06/20/2024 INFLUENZA A/B RSV SARS-COV2,PCR Lab Routine Acute pharyngitis, unspecified etiology Expected: 06/20/2023, Expires: 06/20/2024 Health Maintenance Due Date Last Done Comments DXA Scan 1950 Depression Screening 1960 Hepatitis C Screening 01/12/1966 Pneumococcal Vaccine: 65+ Years (2 of 2 - PPSV23 or PCV20) 08/10/2016 08/11/2015 Zoster Vaccines (3 of 3) 08/02/2022 023, 05/29/2016 COVID-19 Vaccine (3 - 2022-2 4 season) 2022 08/13/2021, 01/20/2021 Influenza Vaccine (FLU shot) (#1) 2022 03/19/2016, 03/05/2016 DTaP,Tdap,and Td Vaccines (2 - Td or Tdap) 10/13/2031 10/12/2021 GARDASIL-HPV IMMUNIZATION SERIES Aged Out No longer eligible b ased on patient's age to complete this topic Hepatitis B Aged Out No longer eligi ble based on patient's age to complete this topic MENINGOCOCCAL (MENACTRA/MENVEO) Aged Out No longer eligible b ased on patient's age to complete this topic documented as of this encounter Medical Devices Implanted Type Area Supervisor Scrap Preparation Device Identifier Shelf Expiration Date Model / Serial / Lot Lens Intraoc 23.5 - [id number] - [id number] Implanted:Qty: 1 on 08/27/2022 by Joshua Sandoval MD at OR [facility] Left: Eye [employer] 02/25/2027 [id number] / [id number] / [id number] Lens Intraoc 22.5 - [id number] - [id number] Implanted:Qty: 1 on 09/10/2022 by Joshua Sandoval MD at OR [facility] Right: Eye [employer] 04/27/2027 [id number] / [id number] / [id number] documented as of this encounter Visit Diagnoses Diagnosis Acute pharyngitis, unspecified etiology- Primary documented in this encounter Advance Directives Latest Code Status on File Code Status Date Activated Date Inactivated Comments No Code 09/10/2022 2:16 PM 09/10/2022 8:37 PM This order reflects the patients wishes and were consensually agreed upon. Question Answer Comments Discussion of Advance Directives occurred with: Patient Does the patient have a Living Will? No Does the patient have Health Care Power of Offset Press Operator? No Care Teams Headline Writer Relationship Specialty Start Date End Date Barbara Valladares CRNP [address] [place] [address] PCP - General Nurse Practitioner 07/29/22 documented as of this encounter"
--- OUTSIDE RECORDS SUMMARY | 2023-07-10 13:56 | External Medical Summary | Summary of Care ---
Author Name Unknown Organization [facility] Address [address] [facility] [address] Phone [phone] Care Team Providers Care Facilities Flight Check Pilot Name Role Phone Barbara Valladares Primary Care Provider [phone] Encounter Details Date Type Department Care Team (Late st Contact Info) Description 06/24/2023 Telephone Orthopaedics [facility] [address] [facility] [place] [address] Tonny Larios, [address] [facility] [place] [address] Allergies Active Allergy Reactions Criticality Noted Date [...] as of this encounter (statuses as of 06/25/2023) Medications Medication Sig Dispensed Refills Start Date [...] Refills: 2, apply to affected toenails, Pharmacy: [facility]/pharmacy #[id number] 0 04/02/2022 Active Coenzyme Q10 300 MG Oral Capsule 300 mg . 0 10/16/2021 Active Ashwagandha 500 MG Oral Capsule Take 1,000 mg by mouth . 0 Active Triamcinolone Acetonide 0.1 % External Cream (Aristocort)Indication s:Rash and nonspecific skin eruption Apply to rash twice daily as needed 45 g 1 11/21/2022 Active documented as of this encounter (statuses as of 06/25/2023) Active Problems No known active problems documented as of this encounter (statuses as of 06/25/2023) Immunizations Name Administration Dates Next Due TDAP (age 10 and older)(Boostrix) 10/12/2021 documented as of this encounter Social History Tobacco Use Types Packs/Day Years Used Date Smoking Tobacco: Never Smokeless Tobacco: Never Alcohol Use Standard Drinks/Week Comments Not Asked 0 (1 standard drink = 0.6 oz pur e alcohol) minimal Sex and Gender Information Value Date Recorded Sex Assigned at Not on file Gender Identity Not on file Sexual Orientation Not on file Job Start Date Occupation Industry Not on file Not on file Not on file documented as of this encounter Miscellaneous Notes * Telephone Encounter - Li Martinez MED ASSIST - 06/25/2023 2:14 PM EST Called and spoke with patient, advised patient of the results of MRI and recommendations, she states at this point she will think about this and decide later due to other health issues at the presenttime. * Telephone Encounter - Tonny Larios DO - 06/24/2023 7:56 AM EST Please call patient with MRI test results that she requested. Again I was only asked to do PRP consultation. Based on my opinion and experience with PRP I am unsure of how successful it will be givenher amount of pathology with meniscus cartilage and arthritis. I would definitely estimate it at less than 50% success rate. If she wishes to try PRP please schedule. As this is the only treatment option that I have to offer her but again I do not think it is highly successful Given her pathology seen on MRI. My recommendation is a TKA consultation. I am unsure if she even needs to follow up with Dr. Garcia she may want to follow up with a total joint specialist given her concerns. She would mentioned in the past that her prior surgeon at [facility] [place] [facility] Joint Fluid: Small knee joint effusion. Bursa/Cysts: No bursitis. Small Michael's cyst. ACL: Intact PCL: Intact Medial and Posteromedial Stabilizers: Intact Lateral and Posterolateral Stabilizers: Intact Patellofemoral Stabilizers: Quadriceps and Patellar tendons are intact. Retinacula are intact. Patellofemoral Compartment: High-grade partial-thickness patellar and trochlear cartilage loss. Medial Compartment: Degenerative tearing in the medial meniscal body which appears diminutive and mildly extruded. Broad-based area of full-thickness cartilage loss in the central weight-bearing portion of the femoral condyle and tibial plateau. Lateral Compartment: Intermediate intrasubstance signal in the lateral meniscal body consistent with degenerative change. No surfacing tear. High-grade partial- thickness cartilage loss over the central weight-bearing portion of the femoral condyle and tibial plateau. Bone: No fracture or marrow replacing lesion. Neurovascular: Within normal limits. Other: Mild nonspecific edema in the proximal lateral gastrocnemius muscle. IMPRESSION IMPRESSION 1. Degenerative medial meniscal tear. 2. 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 documented in this encounter Plan of Treatment Upcoming Encounters Date Type Department Care Team (Late st Contact Info) Description 07/22/2023 3:00 PM EDT Office Visit Orthopaedics [facility] [address] [place] [address] Jorge Garcia DO [address] [place] [address] Health Maintenance Due Date Last Done Comments [...] this encounter Medical Devices Implanted Type Area Nursing Program Chair Device Identifier Shelf Expiration Date Model / Serial / Lot Lens Intraoc 23.5 - [id number] - [id number] Implanted:Qty: 1 on 08/27/2022 by Joshua Sandoval MD at OR [facility] Left: Eye [employer] 02/25/2027 [id number] / [id number] / [id number] Lens Intraoc 22.5 - [id number] - [id number] Implanted:Qty: 1 on 09/10/2022 by Joshua Sandoval MD at OR [facility] Right: Eye [employer] 04/27/2027 [id number] / [id number] / [id number] documented as of this encounter Advance Directives Latest Code Status on File Code Status Date Activated Date Inactivated Comments No Code 09/10/2022 2:16 PM 09/10/2022 8:37 PM This order reflects the patients wishes and were consensually agreed upon. Question Answer Comments Discussion of Advance Directives occurred with: Patient Does the patient have a Living Will? No Does the patient have Health Care Power of Paint Spraying Machine Operator Helper? No Care Teams Facilities Flight Check Pilot Relationship Specialty Start Date End Date Barbara Valladares CRNP [address] [place] [address] PCP - General Nurse Practitioner 07/29/22 documented as of this encounter
--- OUTSIDE RECORDS SUMMARY | 2023-07-10 13:56 | External Medical Summary | Summary of Care ---
Author Name Unknown Organization [facility] Address [address] [place] [address] Phone [phone] Care Team Providers Care Data Integrity Analyst Name Role Phone Barbara Valladares Primary Care Provider [phone] Reason for Visit * Reason Onset Date Comments Appointment 06/21/2023 MRI Encounter Details Date Type Department Care Team (Late st Contact Info) Description 06/21/2023 Telephone [address] [place] [address] Debbie Wilson, RT (R) Appointment (/MRI) Allergies Active Allergy Reactions Criticality Noted Date [...] as of this encounter (statuses as of 06/21/2023) Medications Medication Sig Dispensed Refills Start Date [...] Refills: 2, apply to affected toenails, Pharmacy: [facility]/pharmacy #[id number] 0 04/02/2022 Active Coenzyme Q10 300 MG Oral Capsule 300 mg . 0 10/16/2021 Active Ashwagandha 500 MG Oral Capsule Take 1,000 mg by mouth . 0 Active Triamcinolone Acetonide 0.1 % External Cream (Aristocort)Indication s:Rash and nonspecific skin eruption Apply to rash twice daily as needed 45 g 1 11/21/2022 Active documented as of this encounter (statuses as of 06/21/2023) Active Problems No known active problems documented as of this encounter (statuses as of 06/21/2023) Immunizations Name Administration Dates Next Due TDAP [...] encounter Miscellaneous Notes * Telephone Encounter - Debbie Wilson RT (R) - 06/21/2023 4:53 PM EST Name: Millicent Wiggins Do you have any of the following: Pacemaker, stents, heart valves, aneurysm clips? No Have you ever worked with metal or have you ever gotten metal in your eyes? No Have you had a colonoscopy in the last 30 days? No On dialysis? No Do you have any dermals or body piercing's? No Do you wear an insulin pump or diabetic monitor? No Knows check in at [address] (R) documented in this encounter Plan of Treatment Upcoming Encounters Date Type Department Care Team (Late st Contact Info) Description 06/23/2023 10:00 AM EST Imaging Radiology [address] [place] [address] 07/22/2023 3:00 PM EDT Office Visit Orthopaedics [facility] [address] [place] [address] Jorge Garcia, [address] [place] [address] Health Maintenance Due Date Last Done Comments [...] this encounter Medical Devices Implanted Type Area Court Of Appeals Judge Device Identifier Shelf Expiration Date Model / Serial / Lot Lens Intraoc 23.5 - [id number] - [id number] Implanted:Qty: 1 on 08/27/2022 by Joshua Sandoval MD at OR [facility] Left: Eye [employer]OM[employer] 02/25/2027 [id number] / [id number] / [id number] Lens Intraoc 22.5 - [id number] - [id number] Implanted:Qty: 1 on 09/10/2022 by Joshua Sandoval MD at OR [facility] Right: Eye [employer]OM[employer] 04/27/2027 [id number] / [id number] / [id number] documented as of this encounter Advance Directives [...] the patient have Health Care Power of Chest Painting And Sealing Supervisor? No Care Teams Data Integrity Analyst Relationship Specialty Start Date End Date Barbara Valladares CRNP [address] [place] [address] PCP - General Nurse Practitioner 07/29/22 documented as of this encounter
--- OUTSIDE RECORDS SUMMARY | 2023-07-10 13:56 | External Medical Summary | Summary of Care ---
Author Name Unknown Organization [facility] Address [address] [place] [address] Phone [phone] Care Team Providers Care Experimental Mechanic Electrical Name Role Phone Barbara Valladares Primary Care Provider [phone] Reason for Visit * Reason Onset Date Comments Sore Throat Vomiting Sore Throat 06/20/2023 Encounter Details Date Type Department Care Team (Latest Contact Info) Description 06/20/2023 9:20 AM EST Convenient Care Visit [facility] [address] [place] [address] Shaneka Avila PA-C [address] [place] [address] Acute pharyngitis, unspecified etiology* Allergies Active Allergy [...] Refills: 2, apply to affected toenails, Pharmacy: [facility]/pharmacy #[id number] 04/02/2022 Active Coenzyme Q10 300 [...] fatigue Sore throat started late last night. Clifford like she might pass out. Made herself eggs this morning but could not keep it down. No more emesis since that episode. Had some water. States she has struggled with various symptoms she attributes to long COVID, including GI sx, rashes. Has seen GI specialist, tongue lining stitcher with extensive evaluation in the past several [...] performed by Naldo Rose MD at ENDOSCOPY [facility] REMOVE CATARACT, INSERT LENS PROSTH Left 08/27/2022 Left EXTRACAPSULAR CATARACT REMOVAL WITH INTRAOCULAR LENS performed by Joshua Sandoval MD at OR [facility] REMOVE CATARACT, INSERT LENS PROSTH Right 09/10/2022 Right EXTRACAPSULAR CATARACT REMOVAL WITH INTRAOCULAR LENS performed by Joshua Sandoval MD at OR [facility] SHOULDER ARTHROSCOPY SURGERY Right TOTAL HIP REPLACEMENT [...] Refills: 2, apply to affected toenails, Pharmacy: [facility]/pharmacy #[id number] Coenzyme Q10 300 MG Oral Capsule 300 [...] of care were discussed Shaneka Avila PA-C [address] [address] documented in this encounter Nursing Notes * Maci Angel LPN - 06/20/2023 9:33 AM EST 73 yo female presents with sore throat/emesis this am. No OTC documented in this encounter Plan of Treatment Upcoming Encounters Date Type Department Care Team (Late st Contact Info) Description 07/04/2023 4:15 PM EST Imaging Radiology [facility] 1st [facility] [address] [facility] [place] [address] 07/22/2023 3:00 PM EDT Office Visit Orthopaedics [facility] [address] [facility] [place] [address] Jorge Garcia, DO [address] [place] [address] Pending Results Name Type Priority Associated Diagnoses Date /Time GROUP A STREP PCR Lab Routine Acute pharyngitis, unspecified etiology 06/20/2023 9:56 AM EST INFLUENZA A/B RSV SARS-COV2,PCR Lab Routine Acute pharyngitis, unspecified etiology 06/20/2023 10:34 AM EST Scheduled Orders Name Type Priority [...] this encounter Medical Devices Implanted Type Area Brick Molder Hand Device Identifier Shelf Expiration Date Model / Serial / Lot Lens Intraoc 23.5 - [id number] - [id number] Implanted:Qty: 1 on 08/27/2022 by Joshua Sandoval MD at OR [facility] Left: Eye [employer]OM[employer] 02/25/2027 [id number] / [id number] / [id number] Lens Intraoc 22.5 - [id number] - [id number] Implanted:Qty: 1 on 09/10/2022 by Joshua Sandoval MD at OR [facility] Right: Eye [employer]USCH [employer] LOMB 04/27/2027 [id number] / [id number] / [id number] documented as of this encounter Visit Diagnoses [...] the patient have Health Care Power of Port Crane Operator? No Care Teams Experimental Mechanic Electrical Relationship Specialty Start Date End Date Barbara Valladares CRNP [address] [place] [address] PCP - General Nurse Practitioner 07/29/22 documented as of this encounter"
--- OUTSIDE RECORDS SUMMARY | 2023-07-10 13:56 | External Medical Summary | Summary of Care ---
Author Name Unknown Organization [facility] Address [address] [place] [address] Phone [phone] Care Team Providers Care Television Analyzer Name Role Phone Barbara Valladares Primary Care Provider [phone] Reason for Visit * Reason Onset Date Comments Sore Throat Vomiting Sore Throat 06/20/2023 Encounter Details Date Type Department Care Team (Latest Contact Info) Description 06/20/2023 9:20 AM EST Convenient Care Visit [facility] [address] [place] [address] Shaneka Avila PA-C [address] [place] [address] Acute pharyngitis, unspecified etiology* Allergies Active Allergy [...] Refills: 2, apply to affected toenails, Pharmacy: [facility]/pharmacy #[id number] 04/02/2022 Active Coenzyme Q10 [...] fatigue Sore throat started late last night. [place] like she might pass out. Made herself eggs this morning but could not keep it down. No more emesis since that episode. Had some water. States she has struggled with various symptoms she attributes to long COVID, including GI sx, rashes. Has seen GI specialist, shell coremaker with extensive evaluation in the past several [...] performed by Naldo Rose MD at ENDOSCOPY [facility] REMOVE CATARACT, INSERT LENS PROSTH Left 08/27/2022 Left EXTRACAPSULAR CATARACT REMOVAL WITH INTRAOCULAR LENS performed by Joshua aSndoval MD at OR [facility] REMOVE CATARACT, INSERT LENS PROSTH Right 09/10/2022 Right EXTRACAPSULAR CATARACT REMOVAL WITH INTRAOCULAR LENS performed by Joshua Sandoval MD at OR [facility] SHOULDER ARTHROSCOPY SURGERY Right TOTAL HIP REPLACEMENT [...] Refills: 2, apply to affected toenails, Pharmacy: [facility]/pharmacy #[id number] Coenzyme Q10 300 MG Oral Capsule 300 [...] of care were discussed Shaneka Avila PA-C [address] [address] documented in this encounter Nursing Notes * Maci Angel LPN - 06/20/2023 9:33 AM EST 73 yo female presents with sore throat/emesis this am. No OTC documented in this encounter Plan of Treatment Upcoming Encounters Date Type Department Care Team (Late st Contact Info) Description 07/04/2023 4:15 PM EST Imaging Radiology [facility] 1st [facility] [address] [facility] [place] [address] 07/22/2023 3:00 PM EDT Office Visit Orthopaedics [facility] [address] [facility] [place] [address] Jorge Garcia, DO [address] [place] [address] Pending Results Name Type Priority Associated Diagnoses Date /Time GROUP A STREP PCR Lab Routine Acute pharyngitis, unspecified etiology 06/20/2023 9:56 AM EST INFLUENZA A/B RSV SARS-COV2,PCR Lab Routine Acute pharyngitis, unspecified etiology 06/20/2023 10:34 AM EST Scheduled Orders Name Type Priority Associated Diagnoses Orde r Schedule GROUP A STREP PCR Lab Routine Acute [...] this encounter Medical Devices Implanted Type Area Psychiatric Nurse Practitioner Device Identifier Shelf Expiration Date Model / Serial / Lot Lens Intraoc 23.5 - [id number] - [id number] Implanted:Qty: 1 on 08/27/2022 by Joshua Sandoval MD at OR [facility] Left: Eye [employer]USCH [employer] LOMB 02/25/2027 [id number] / [id number] / [id number] Lens Intraoc 22.5 - [id number] - [id number] Implanted:Qty: 1 on 09/10/2022 by Joshua Sandoval MD at OR [facility] Right: Eye [employer]USCH [employer] LOMB 04/27/2027 [id number] / [id number] / [id number] documented as of this encounter Procedures Procedure Name Priority Date/Time Associated Diagnosis Comments STREP A SCREEN, POINT OF CARE (ENTER/EDIT) Routine 06/20/2023 Acute pharyngitis, unspecified etiology documented in this encounter Results * STREP A SCREEN, POINT OF CARE (ENTER/EDIT) (06/20/2023) Strep A Result Negative Negative Procedural Control Valid? Yes Lot Number [id number] Expiration Date 41, Swab Throat swab / Unknown 06/20/2023 Shaneka Avila PA-C LAB POINT OF CARE TEST ENTER/EDIT ORDERABLES documented in this encounter Visit Diagnoses Diagnosis Acute pharyngitis, [...] the patient have Health Care Power of Rolling Machine Operator Automatic? No Care Teams Television Analyzer Relationship Specialty Start Date End Date Barbara Valladares CRNP [address] [facility] [place] [address] PCP - General Nurse Practitioner 07/29/22 documented as of this encounter"
--- OUTSIDE RECORDS SUMMARY | 2023-07-10 13:57 | External Medical Summary | Summary of Care ---
Author Name Unknown Organization [facility] Address [address] [facility] [address] Phone [phone] Care Team Providers Care Administration Assistant Name Role Phone Barbara Valladares Primary Care Provider [phone] Reason for Referral * Evaluate & Treat - Unlimited Visits (Within 30 days (routine)) - Pending Review Specialty Diagnoses / Procedures Referred By Tin de jesus Referred To Contact Sports Medicine / Orthopedics Diagnoses Primary osteoarthritis of one knee, right Georgia Avila PA-C [address] [place] [address] Tonny Larios DO [address] [place] [address] Referral ID Status Reason Start Date Expiration Date Visits Requested Visits Authorized [id number] Pending Review Specialty Services Required 3 [phone] Question Answer Referral Priority Within 30 days (routine) Where should this appointment be scheduled? [facility] What body part is the patient being seen for? Thigh/Knee What condition is the patient being seen for? Sprain/Strain/Tear/Other Comments To Dr. Larios for further discussion regarding PRP Reason for Visit * Reason Comments NEW PATIENT Right knee Encounter Details Date Type Department Care Team (Latest Contact Info) Description 04/08/2023 3:30 PM EST Office Visit Orthopaedics [facility] [address] [place] [address] Jorge Garcia DO [address] [place] [address] Chronic pain of right knee*; Primary osteoarthritis of one knee, right Allergies Active Allergy Reactions Criticality Noted Date [...] as of this encounter (statuses as of 04/09/2023) Medications Medication Sig Dispensed Refills Start Date [...] Refills: 2, apply to affected toenails, Pharmacy: [facility]/pharmacy #[id number] 04/02/2022 Active Coenzyme Q10 300 MG Oral Capsule 300 mg . 0 10/16/2021 Active Ashwagandha 500 MG Oral Capsule Take 1,000 mg by mouth . 0 Active Triamcinolone Acetonide 0.1 % External Cream (Aristocort)Indication s:Rash and nonspecific skin eruption Apply to rash twice daily as needed 45 g 1 11/21/2022 Active documented as of this encounter (statuses as of 04/09/2023) Active Problems No known active problems documented as of this encounter (statuses as of 04/09/2023) Immunizations Name Administration Dates Next Due TDAP [...] on file documented as of this encounter Progress Notes * Jorge Garcia DO - 04/09/2023 7:29 AM EST I have reviewed the advanced practitioner documentation and agree. I saw and evaluated the patient on date of service referenced in note and have performed the medically appropriate history and/or exam * Georgia Avila PA-C - 04/08/2023 4:31 PM EST Patient Name: Millicent Wiggins CHIEF COMPLAINT: Chief Complaint Patient presents with NEW PATIENT Right knee HISTORY OF PRESENT ILLNESS: This is a 73 year old female seen in clinic today for right knee pain x years. She locates the painto the medial aspect of her knee. Her pain is most notable during yoga and using the stairs. She reports she has utilized a knee brace in the past. She does not feel the pain is severe enough to use Tylenol/ibuprofen, Voltaren gel, ice or heat. She denies any catching or locking of her knee. Deniesany numbness/tingling of her right lower extremity. She has been told she had knee arthritis in thepast by Dr. Martinez at [facility], and was approved for GARCIA injections but has not began treatment. She does express she is not interested in pursuing a total joint replacement for her knee, but tierras report bilateral total hip replacements done at [facility] in 2017. She is an inquiring today about an MRI for her knee. Past Medical History: Diagnosis Date COVID-19 long hauler Primary generalized (osteo)arthritis Past Surgical History: Procedure Laterality Date EGD, W/ENDOSCOPIC US 04/16/2022 mild dilation in CBD measured 8mm due-post cholecystectomy, evid of cholecystectyomy, otherwise normal / no specimens collected / ESOPHAGOGASTRODUODENOSCOPY (EGD), FLEXIBLE, TRANSORAL, ENDOSCOPIC ULTRASOUND performed by Naldo Rose MD at ENDOSCOPY [facility] REMOVE CATARACT, INSERT LENS PROSTH Left 08/27/2022 Left EXTRACAPSULAR CATARACT REMOVAL WITH INTRAOCULAR LENS performed by Joshua Sandoval MD at OR [facility] REMOVE CATARACT, INSERT LENS PROSTH Right 09/10/2022 Right EXTRACAPSULAR CATARACT REMOVAL WITH INTRAOCULAR LENS performed by Joshua Sandoval MD at OR [facility] SHOULDER ARTHROSCOPY SURGERY Right TOTAL HIP REPLACEMENT & PROSTHESIS Bilateral No family history on file. Social History Social History Narrative Not on file ROS: Constitional: No change in weight, No weakness, No fatigue, and No fevers, sweats, or chills Skin: No edema, No rash, and No itching Psychiatric: No depression, No anxiety, and No psychosis PHYSICAL EXAM: There were no vitals taken for this visit. General: generally well-nourished and in no acute distress HEENT: normocephalic, atraumatic, EOMI, sclera anicteric. Psych: mood and affect normal , cooperative Card: Peripheral pulses: normal in affected extremity (s) Resp: equal chest rise, non-tachypneic, non-labored breathing Skin: no rash, normal Neuro: Coordination: normal The patient has a normal gait. The right knee is nontender over the medial and lateral joint line. Margot's test is negative. Apley grind test: negative There is no effusion. ROM is from 0 to 120 degrees. There is no tenderness over the patellar tendon. There is no patellar crepitus. There is no pain with provocative patellofemoral maneuvers. J sign: negative Anterior drawer negative Posterior drawer negative Varus stress: negative without pain Valgus stress: negative without pain There is 5/5 quad/hamstring Sensation: Intact L3-S1 Foot warm and well perfused Bilateral hips: No pain with log roll IMAGING: XRAYS: Right knee WB AP/lateral/[place] performed today demonstrate per my interpretationno acute fracture/dislocation. Joint space narrowing with osteophyte formation most prominent in the medial compartment. No joint effusion. No soft tissue abnormality. ASSESSMENT: Millicent is a 73 year old female with primary osteoarthritis of right knee. PLAN: Patient seen and examined in clinic today. I personally reviewed the patient's imaging studies withthe patient during today's visit. Various treatment options were discussed. Nonoperative treatment discussed in detail including anti- inflammatory medication, physical therapy, bracing, intra-articular steroid and gel injections as well as PRP injections. Discussed I do not feel an MRI is warrantedat this time nor would it be helpful in determining a treatment option. Total joint replacement wasdiscussed but she declines any operative management at this time. After a long discussion of nonoperative treatment options she elected to have a consult for PRP with Dr. Larios. That referral was placed today and she is going to call to schedule that appointment if she wishes to pursue that procedure. The patient was also seen and evaluated with Dr. Garcia who is in agreement with today's plan. Patient expressed understanding and was in agreement with today's treatment plan. There are no Patient Instructions on file for this visit. Georgia Avila PA-C [facility] [address] [facility] [address] Orth[facility] Sports Medicine Surgery 04/08/2023 4:32 PM This chart was completed in part utilizing [employer] Speech Voice Recognition Software. Grammatical errors, random word insertions, pronoun errors, and incomplete sentences are an occasional consequence of this system due to software limitations, ambient noise, and hardware issues. Any formal questions or concerns about the content, text, or information contained within the body of this dictation should be directly addressed to the provider for clarification. documented in this encounter Nursing Notes * Yuliet López MED ASSIST - 04/08/2023 3:01 PM EST Pt presents today for right knee x year. Has tried wearing a brace. Pt states she goes to yoga 3 days a week which seems to help, but she cannot kneel on her right knee, walk down steps, run, and some walking is rough. Patient states she also feels like her leg will give out on her. documented in this encounter Plan of Treatment Pending Results Name Type Priority Associated Diagnoses Date /Time XR KNEE 4 OR MORE VIEWS Medical Imaging Routine Chronic pain of right knee 04/08/2023 3:10 PM EST Scheduled Referrals Name Type Priority Associated Diagnoses Orde r Schedule SPORTS MEDICINE REFERRAL OP Referral Within 30 days (routine) Primary osteoarthritis of one knee, right Ordered: 04/08/2023 Health Maintenance Due Date Last Done Comments DXA Scan 1950 Depression Screening 1960 Hepatitis C Screening 01/12/1966 Pneumococcal Vaccine: 65+ Years (2 - PPSV23 or PCV20) 08/10/2016 08/11/2015 Zoster [...] this encounter Medical Devices Implanted Type Area Personnel Research Psychologist Device Identifier Shelf Expiration Date Model / Serial / Lot Lens Intraoc 23.5 - [id number] - [id number] Implanted:Qty: 1 on 08/27/2022 by Joshua Sandoval MD at OR [facility] Left: Eye BAUSCH [employer] LOMB 02/25/2027 [id number] / [id number] / [id number] Lens Intraoc 22.5 - [id number] - [id number] Implanted:Qty: 1 on 09/10/2022 by Joshua Sandoval MD at [facility] Right: Eye BAUSCH & LOMB 04/27/2027 [id number] / [id number] / [id number] documented as of this encounter Visit Diagnoses Diagnosis Chronic pain of right knee- Primary Primary osteoarthritis of one knee, right documented in this encounter Advance Directives Latest Code Status on File Code Status Date Activated Date Inactivated Comments No Code 09/10/2022 2:16 PM 09/10/2022 8:37 PM This order reflects the patients wishes and were consensually agreed upon. Question Answer Comments Discussion of Advance Directives occurred with: Patient Does the patient have a Living Will? No Does the patient have Health Care Power of Machine Scallop Cutter? No Care Teams Administration Assistant Relationship Specialty Start Date End Date Barbara Valladares CRNP [address] [place] [address] PCP - General Nurse Practitioner 07/29/22 documented as of this encounter
--- OUTSIDE RECORDS SUMMARY | 2023-07-10 13:57 | External Medical Summary ---
Author Name Unknown Address Unknown Organization K01:LABORATORY [facility] - [address] [facility] [address] Laboratory Report Ordering Provider Test Date Status ANIL TUCKER 06/20/2023 10:34:56 Final Observation Date Value Abnormality Reference (Units ) Status SARS Coronavirus 2 06/20/2023 10:34:56 Negative N egative Final No SARS-CoV2 Coronavirus RNA detected by PCR (amplified probe).
This express test was developed and its performance characteristics determined by [employer] [facility] It has not been cleared or approved by the U.S. Food and Drug Administration (FDA). FDA does not require this test to go thru premarket FDA review. This test is used for clinical purposes. It should not be regarded as investigational or for research. This laboratory is certified under the Clinical Laboratory Improvement Amendments (CLIA) as qualified to perform high complexity clinical laboratory testing.

This test is a nucleic acid amplification test (NAAT), a reverse transcriptase polymerase chain reaction (RT-PCR) test, or a Centers for Disease Control-acceptable equivalent. The test is performed in a high complexity Clinical Laboratory Improvement Amendments-(CLIA) certified laboratory. The test is acceptable for SARS-CoV-2 diagnosis, surveillance, and travel within the [place] and to most countries. Please check with local testing authorities about requirements before travel.

The validation of bronchial specimens, tracheal aspirates, and sputum for this assay was developed and performance characteristics determined by [employer] [facility] The validation of alternate specimen types has not been cleared or approved by the U.S. Food and Drug Administration (FDA). It has been determined that such clearance is not necessary. Influenza virus A RNA [Prese nce] in Specimen by MIRI with probe detection 06/20/2023 10:34:56 Negative Negative Final No Influenza A RNA detected by PCR (amplified probe) Influenza virus B RNA [Prese nce] in Specimen by MIRI with probe detection 06/20/2023 10:34:56 Negative Negative Final No Influenza B RNA detected by PCR (amplified probe) Respiratory syncytial virus RNA [Identifier] in Specimen by MIRI with probe detection 06/20/2023 10:34:56 Negative Negative Final No Respiratory Syncytial Vir us RNA detected by PCR (amplified probe) Performing Location LABORATORY [address] [place] [facility] [address]
--- OUTSIDE RECORDS SUMMARY | 2023-07-10 13:57 | External Medical Summary ---
Author Name Unknown Address Unknown Organization K01:[facility] [place] [address] [facility] [address] Laboratory Report Ordering Provider Test Date Status ANIL TUCKER 06/20/2023 09:56:46 Final Observation Date Value Abnormality Reference (Units) Status Streptococcus pyogenes DNA [Presence] in Throat by MIRI with probe detection 06/20/2023 09:56:46 Negative. No Group A Streptococcus detected by PCR (amplified probe). Negative Final This test was developed and its performance characteristics determined by [employer]. It has not been cleared or approved by the FDA. The laboratory is regulated under CLIA as qualified to perform high- complexity testing. This test is used for clinical purposes. It should not be regarded as investigational or for research. Performing Location LABORATORY [facility] [place] - [address] [facility] [address]
--- OUTSIDE RECORDS SUMMARY | 2023-07-10 13:57 | External Medical Summary | Summary of Care ---
Author Name Unknown Organization [facility] Address [address] [place] [address] Phone [phone] Care Team Providers Care Rewriter Name Role Phone Barbara Valladares Primary Care Provider [phone] Reason for Referral * Precert (Within 10 days (routine)) - Pending Review Specialty Diagnoses / Procedures Referred By Tin de jesus Referred To Contact Radiology Diagnoses Chronic pain of right knee Primary osteoarthritis of one knee, right Procedures MRI KNEE RIGHT WO CONTRAST Tonny Larios DO [address] [place] [address] Referral ID Status Reason Start Date Expiration Date V isits Requested Visits Authorized [id number] Pending Review 06/09/2023 999 999 Reason for Visit * Reason Comments NEW PATIENT Right knee * Evaluate & Treat - Unlimited Visits (Within 30 days (routine)) - Pending Review Specialty Diagnoses / Procedures Referred By Tin de jesus Referred To Contact Sports Medicine / Orthopedics Diagnoses Primary osteoarthritis of one knee, right Georgia Avila PA-C [address] [place] [address] Tonny Larios DO [address] [place] [address] Referral ID Status Reason Start Date Expiration Date Visits Requested Visits Authorized [id number] Pending Review Specialty Services Required 3 [phone] Encounter Details Date Type Department Care Team (Latest Contact Info) Description 06/09/2023 2:45 PM EST Office Visit Orthopaedics [facility] [address] [place] [address] Tonny Larios, DO [address] [place] [address] Chronic pain of right knee*; Primary osteoarthritis [...] as of this encounter (statuses as of 06/10/2023) Medications Medication Sig Dispensed Refills Start Date [...] Refills: 2, apply to affected toenails, Pharmacy: [facility]/pharmacy #[id number] 0 04/02/2022 Active Coenzyme Q10 300 MG Oral Capsule 300 mg . 0 10/16/2021 Active Ashwagandha 500 MG Oral Capsule Take 1,000 mg by mouth . 0 Active Triamcinolone Acetonide 0.1 % External Cream (Aristocort)Indication s:Rash and nonspecific skin eruption Apply to rash twice daily as needed 45 g 1 11/21/2022 Active documented as of this encounter (statuses as of 06/10/2023) Active Problems No known active problems documented as of this encounter (statuses as of 06/10/2023) Immunizations Name Administration Dates Next Due TDAP [...] as of this encounter Progress Notes * Tonny Larios, - 06/10/2023 7:35 AM EST Millicent Wiggins [id number] Millicent Wiggins is a 73 year old female who presents for consultation to [facility] for right knee pain specifically PRP consult. Consult requested by Georgia Avila PA-C. Millicent Wiggins is here unaccompanied Date of Injury: no injury History: History - Pain x years located primarily on the medial aspect of her right knee. She reports the pain is not consistent but does occur during yoga and using the stairs. She attends yoga approximally 3 times per week . In the past she was given a knee brace by outside orthopedic group. She is unsureof the benefit Patient reports her pain is not severe enough to use Tylenol/ibuprofen, Voltaren, or heat. She has been seen for knee arthritis in the past by Dr. Martinez at [facility], and was approved for GARCIA injections but has not began treatment. I can not easily see those notes in [facility]. She reports she has not interested in a knee replacement. She denies that her knee swells catches or locks. It does have a sensation of instability but it isnot consistent. She reports as she is concerned that she may have a possible ACL injury. Previous knee surgeries include: None ROS EXAM: Not performed Past Medical History: Diagnosis Date COVID-19 long hauler Primary generalized (osteo)arthritis Social History Socioeconomic History Marital status: Single Spouse name: Not on file Number of children: Not on file Years of education: Not on file Highest education level: Not on file Occupational History Not on file Tobacco Use Smoking status: Never Smokeless tobacco: Never Vaping Use Vaping Use: Never used Substance and Sexual Activity Alcohol use: Not on file Comment: minimal Drug use: Never Sexual activity: Not on file Other Topics Concern Not on file Social History Narrative Not on file Social Determinants of Health Financial Resource Strain: Not on file Food Insecurity: Not on file Transportation Needs: Not on file Physical Activity: Not on file Stress: Not on file Social Connections: Not on file Intimate Partner Violence: Not on file Housing Stability: Not on file Current Outpatient Medications Medication Sig Dispense Refill Aspirin 81 MG Oral Tablet Delayed Release 1 Tablet. Multi-Vitamin Oral Tablet Take 1 Tablet by mouth in the morning. Cholecalciferol 125 MCG (5000 UT) Oral Capsule DAILY Ciclopirox Olamine 0.77 % External Cream Start: 04/02/22 14:00:00 EST, 1 appl, topical, bid, Disp# 90 g, Refills: 2, apply to affected toenails, Pharmacy: [facility]/pharmacy #[id number] Coenzyme Q10 300 MG Oral Capsule 300 mg . Ashwagandha 500 MG Oral Capsule Take 1,000 mg by mouth . Triamcinolone Acetonide 0.1 % External Cream (Aristocort) Apply to rash twice daily as needed 45 g 1 No current facility-administered medications for this visit. Past Surgical History: Procedure Laterality Date EGD, W/ENDOSCOPIC US 04/16/2022 mild dilation in CBD measured 8mm due-post cholecystectomy, evid of cholecystectyomy, otherwise normal / no specimens collected / ESOPHAGOGASTRODUODENOSCOPY (EGD), FLEXIBLE, TRANSORAL, ENDOSCOPIC ULTRASOUND performed by Naldo Rose MD at ENDOSCOPY [facility] REMOVE CATARACT, INSERT LENS PROSTH Left 08/27/2022 Left EXTRACAPSULAR CATARACT REMOVAL WITH INTRAOCULAR LENS performed by Joshua Sandoval MD at OR [facility] REMOVE CATARACT, INSERT LENS PROSTH Right 09/10/2022 Right EXTRACAPSULAR CATARACT REMOVAL WITH INTRAOCULAR LENS performed by Joshua Sandoval MD at [facility] SHOULDER ARTHROSCOPY SURGERY Right TOTAL HIP REPLACEMENT & PROSTHESIS Bilateral Bilateral hip replacements performed at [facility] Physical Exam General: in no acute distress, conversant Physical exam not performed Radiology (I have personally reviewed the films done 04/08/23: Right knee Severe degenerative changes within the medial compartment osteophytosis. Moderate degenerative changes within the patellofemoral joint. Assessment and Plan: I discussed with the patient that her visit was for a PRP consult as I am not a knee surgeon. She states she is here to get an MRI ordered. I attempted to address the fact that she has not done formal physical therapy. She expressed to me that her yoga is equivalent to physicaltherapy. I then wanted to review PRP and did provide her with a patient handout she states she is more interested in stem cell as a person that she knows in her yoga class has had stem cell. She thenreported to me that if she would require knee surgery she would prefer to be seen by her surgeon Phuong who has now moved to [place]. For convenience of this visit and based on patient request only I have ordered an MRI. I told her that the MRI may or may not be approved based on her meeting any criteria that her insurance would need. There is no follow up with me indicated under any circumstances unless she wishes to have PRP ofwhich I told her that based on her level of knee arthritis I think the success rate is easily less than 50%. We will send her her MRI results through [employer]. If she does not wish PRP or surgical interventionI see no indication indication to follow up with Dr. Garcia as well 1) Chronic pain of right knee (Primary) - MRI KNEE RIGHT WO CONTRAST Primary osteoarthritis of one knee, right - MRI KNEE RIGHT WO CONTRAST Follow-up: Return in about 1 week (around 06/16/2023). | Check-out note: F/u Dr Garcia after MRI Tonny Larios DO Primary Care Sports Medicine [address]opaedics [address] [place] [address] documented in this encounter Nursing Notes * Maikel Mooney MED ASSIST - 06/09/2023 2:15 PM EST New patient right knee pain. documented in this encounter Plan of Treatment Upcoming Encounters Date Type Department Care Team (Late st Contact Info) Description 07/04/2023 4:15 PM EST Imaging Radiology [facility] [address] [place] [address] 07/22/2023 3:00 PM EDT Office Visit Orthopaedics [facility] [address] [place] [address] Jorge Garcia, [address] [place] [address] Scheduled Orders Name Type Priority Associated Diagnoses Orde r Schedule MRI KNEE RIGHT WO CONTRAST Medical Imaging Routine Chronic pain of right knee Primary osteoarthritis of one knee, right Ordered: 06/09/2023 Health Maintenance Due Date Last Done Comments [...] this encounter Medical Devices Implanted Type [employer] Display Builder Device Identifier Shelf Expiration Date Model / Serial / Lot Lens Intraoc 23.5 - [id number] - [id number] Implanted:Qty: 1 on 08/27/2022 by Joshua Sandoval MD at OR [facility] Left: Eye [employer] 02/25/2027 [id number] / [id number] / [id number] Lens Intraoc 22.5 - [id number] - [id number] Implanted:Qty: 1 on 09/10/2022 by Joshua Sandoval MD at OR [facility] Right: Eye [employer]OM[employer] 04/27/2027 [id number] / [id number] / [id number] documented as of this encounter Visit Diagnoses [...] the patient have Health Care Power of Manager Payer? No Care Teams Rewriter Relationship Specialty Start Date End Date Barbara Valladares CRNP [address] [place] [address] PCP - General Nurse Practitioner 07/29/22 documented as of this encounter"
--- OUTSIDE RECORDS SUMMARY | 2023-07-10 13:57 | External Medical Summary | Summary of Care ---
Author Name Unknown Organization [facility] Address [address] [facility] [address] Phone [phone] Care Team Providers Care Special Events Director Name Role Phone Barbara Valladares Primary Care Provider [phone] Reason for Referral * Evaluate & Treat - Unlimited Visits (Within 30 days (routine)) - Pending Review Specialty Diagnoses / Procedures Referred By Tin de jesus Referred To Contact Sports Medicine / Orthopedics Diagnoses Primary osteoarthritis of one knee, right Georgia Avila PA-C [address] [place] [address] Tonny Larios DO [address] [place] [address] Referral ID Status Reason Start Date Expiration Date Visits Requested Visits Authorized [id number] Pending Review Specialty Services Required 3 999 [...] 04/08/2023 3:30 PM EST Office Visit Orthopaedics [facility] [address] [place] [address] Jorge Garcia DO [address] [place] [address] Chronic pain of right knee*; Primary osteoarthritis [...] as of this encounter (statuses as of 04/08/2023) Medications Medication Sig Dispensed Refills Start Date [...] Refills: 2, apply to affected toenails, Pharmacy: [facility]/pharmacy #[id number] 04/02/2022 Active Coenzyme Q10 300 MG Oral Capsule 300 mg . 0 10/16/2021 Active Ashwagandha 500 MG Oral Capsule Take 1,000 mg by mouth . 0 Active Triamcinolone Acetonide 0.1 % External Cream (Aristocort)Indication s:Rash and nonspecific skin eruption Apply to rash twice daily as needed 45 g 1 11/21/2022 Active documented as of this encounter (statuses as of 04/08/2023) Active Problems No known active problems documented as of this encounter (statuses as of 04/08/2023) Immunizations Name Administration Dates Next Due TDAP [...] as of this encounter Progress Notes * Georgia Avila PA-C - 04/08/2023 4:31 [...] been told she had knee [facility] Martinez at [facility], and was approved for GARCIA injections but has not began treatment. She does express she is not interested in pursuing a total joint replacement for her knee, but shedoes report bilateral total hip replacements done at [facility] for special surgery in 2017. She is [...] performed by Naldo Rose MD at ENDOSCOPY [facility] REMOVE CATARACT, INSERT LENS PROSTH Left 08/27/2022 Left EXTRACAPSULAR CATARACT REMOVAL WITH INTRAOCULAR LENS performed by Joshua Sandoval MD at OR [facility] REMOVE CATARACT, INSERT LENS PROSTH Right 09/10/2022 Right EXTRACAPSULAR CATARACT REMOVAL WITH INTRAOCULAR LENS performed by Joshua Sandoval MD at OR [facility] SHOULDER ARTHROSCOPY SURGERY Right TOTAL HIP REPLACEMENT [...] log roll IMAGING: XRAYS: Right knee WB AP/lateral/Hernandez/[place] performed today demonstrate per my interpretationno acute [...] for this visit. Georgia Avila PA-C [address]ed[address] [place] [address] Orthopedic Sports Medicine Surgery 04/08/2023 4:32 PM This chart was completed in part utilizing [employer] Speech Voice Recognition Software. Grammatical errors, random [...] this encounter Medical Devices Implanted Type Area Roll Handler Device Identifier Shelf Expiration Date Model / Serial / Lot Lens Intraoc 23.5 - [id number] - [id number] Implanted:Qty: 1 on 08/27/2022 by Joshua Sandoval MD at OR [facility] Left: Eye [employer]OMB 02/25/2027 [id number] / [id number] / [id number] Lens Intraoc 22.5 - [id number] - [id number] Implanted:Qty: 1 on 09/10/2022 by Joshua Sandoval MD at OR [facility] Right: Eye [employer]CH [employer]OMB 04/27/2027 [id number] / [id number] / [id number] documented as of this encounter Visit Diagnoses [...] the patient have Health Care Power of Paper Stripper? No Care Teams Special Events Director Relationship Specialty Start Date End Date Barbara Valladares CRNP [address] [place] [address] PCP - General Nurse Practitioner 07/29/22 documented as of this encounter
--- NOTE | 2023-07-12 06:08 | Electrocardiogram Report ---
Test Reason : Blood Pressure : / mmHG Vent. Rate : 088 BPM Atrial Rate : 088 BPM P-R Int : 156 ms QRS Dur : 080 ms QT Int : 356 ms P-R-T Axes : 072 056 072 degrees QTc Int : 430 ms Normal sinus rhythm Possible Left atrial enlargement Borderline ECG When compared with ECG of 13-DEC-2022 21:30, No significant change was found Confirmed by Saman Larson ([id number]) on 07/12/2023 6:07:50 AM Referred By: Confirmed By:Saman Larson
== END 2023-07-10 02:14 | disposition left against medical advice (07) | DRG 313 ==
LOC: ED 13:55 → EDINP 22:12